=== PATIENT | male | born 1975 | race Caucasian/White ===

== ENCOUNTER 2016-08-12 08:47 | Emergency (ER) | payer OTHER ==
[~2016-08-12] VITALS: Ht 190.5 cm; Wt 95.3 kg
--- NOTE | ~2016-08-12 | EKG ---
[address] [address] [place] [address] ELECTROCARDIOGRAM REPORT Name: JUDY GOODWIN [facility] [id number] Admission: 08/12/16 Attend Phys: Discharge: 08/12/16 Date of : 75 Report #: [id number] THIS REPORT FOR: //name// [facility] ED Test Date: 2016-08-12 Test Time: 09:11:27 Pat Name: JUDY GOODWIN Department: Room: Gender: Airport Electrician: Duane MCMANUS : 1975 Requested By: Jaren Puente Order Number: [id number] MD: Raleigh Sotomayor Measurements Intervals [place] Rate: 89 P: 56 SD: 165 QRS: 59 QRSD: 158 T: 10 QT: 425 QTc: 518 Interpretive Statements Sinus tachycardia Ventricular trigeminy Right bundle branch block Baseline wander in lead(s) V3 No previous ECG available for comparison Electronically Signed On 08-13-2016 15:01:08 CDT by Raleigh Sotomayor [email or web address] <ELECTRONICALLY SIGNED> By: Raleigh Sotomayor MD, [facility] 08/13/16 1501 0 0 Raleigh Sotomayor MD, [facility] /EPI
[2016-08-12 09:14] LABS: HEMATOCRIT 38.3 % (42.0-52.0); HEMOGLOBIN 12.6 gm/dL (14.0-18.0); MCH 24.9 pg (26.0-34.0); MCHC 32.8 g/dL (28.0-37.0); RBC 5.04 mil/uL (4.50-6.00); RDW 17.8 % (10.5-14.5); WBC 5.8 thou/uL (4.0-11.0)
[2016-08-12 09:26] LABS: APTT 25.4 Seconds (24.5-32.8); INR 1.1; PROTIME 11.9 Seconds (9.3-11.4)
[2016-08-12 09:28] LABS: ANION GAP 11 mmol/L (7-16); BUN 18 mg/dL (7-18); CALCIUM 8.8 mg/dL (8.5-10.1); CHLORIDE 106 mmol/L (98-107); CO2 23 mmol/L (21-32); CREATININE 1.3 mg/dL (0.7-1.3); GLUCOSE 123 mg/dL (74-106); POTASSIUM 3.5 mmol/L (3.5-5.1); SODIUM 140 mmol/L (136-145)
[2016-08-12 09:31] LABS: POC CA IONIZED 4.5 mg/dL (4.5-5.3); POC CREATININE 1.1 mg/dL (0.6-1.3); POC HEMOGLOBIN 13.9 g/dL (14.0-18.0); POC POTASSIUM 3.5 mmol/L (3.5-5.1)
[2016-08-12 09:37] LABS: TROPONIN-I < 0.04 ng/mL (<0.04-0.07)
[2016-08-12 10:35] VITALS: BP 141/79
== END 2016-08-12 10:45 | disposition short-term general hospital (02) ==
LOC: ER 08:47
PROVIDERS: Emergency Medicine
DX: I63.412 Cerebral infarction due to embolism of left middle cerebral artery (principal)

== ENCOUNTER 2016-10-02 02:41 | Inpatient (IN) | payer OTHER ==
[~2016-10-02] VITALS: Ht 190.5 cm; Wt 90.7 kg
--- NOTE | ~2016-10-02 | D ---
[facility] [place] [address] DISCHARGE SUMMARY Name: JUDY GOODWIN Room #: 540-P [facility] IN M.R.#: [id number] Admission: 10/02/16 Attend Phys: Rogerio Francis MD Discharge: 10/04/16 Date of : 75 Report #: [id number] THIS REPORT FOR: //name// CC: [facility] physician/PCP Rogerio Francis DATE OF ADMISSION: 10/02/2016 DATE OF DISCHARGE: 10/04/2016 HISTORY OF PRESENT ILLNESS: The patient is a 41-year-old man with history of Crohn's disease, who was admitted to the hospital for abdominal pain. Please refer to admission H and P for details. In brief, CT scan of the abdomen showed markedly distended bowel loops, with mucosal thickening and possible stricture formation. HOSPITALIZATION COURSE: The patient was hospitalized at [facility]. Crohn's disease exacerbation was suspected. The patient was seen by GI specialist. He was treated with IV Solu-Medrol. His symptoms improved overnight, and by next day, he became completely asymptomatic. The patient's white count remained normal. His stool test for C. diff came negative. Currently, the patient is doing well. His p.o. intake is well established, and he has no abdominal symptoms. GI doctor recommended short prednisone taper off course. The patient will continue to follow as an outpatient in GI clinic. Currently, the patient's condition is acceptable as documented in the patient's chart. DISCHARGE DIAGNOSES: 1. Crohn's exacerbation, ____ on steroids. Details as above. 2. Recent stroke, with residual right-sided weakness. 3. Newly diagnosed atrial fibrillation, on Eliquis for anticoagulation. 4. Dyslipidemia. DISPOSITION: The patient is discharged home. FOLLOWUP PLAN: Follow up in GI clinic as advised. DISCHARGE MEDICATIONS: Please refer to the med reconciliation list. <ELECTRONICALLY SIGNED> By: Rogerio Francis MD 10/04/16 1807 1244 1432 Rogerio Francis MD /nt
--- NOTE | ~2016-10-02 | EKG ---
[address] [address] ELECTROCARDIOGRAM REPORT Name: BUDDYJUDYTRINA BYERS Room #: 540-P ADM IN M.R.#: [id number] Admission: 10/02/16 Attend Phys: Wei Kwan MD Discharge: Date of : 75 Report #: [id number] THIS REPORT FOR: //name// [facility] ED Test Date: 2016-10-02 Test Time: 02:45:55 Pat Name: JUDY GOODWIN Department: Room: 540 Gender: M Stereotyper: JULIA : 1975 Requested By: Genevieve Roque Order Number: [id number] MD: Dominic Soni Measurements Intervals [place] Rate: 69 P: 83 [place]: 172 QRS: 76 QRSD: 143 T: 32 QT: 428 QTc: 459 Interpretive Statements Sinus rhythm Right bundle branch block Baseline wander in lead(s) V1,V2 Compared to ECG 08/12/2016 09:11:27 Sinus tachycardia no longer present Ventricular premature complex(es) no longer present Electronically Signed On 10-02-2016 17:56:11 CDT by Dominic Soni [email or web address] <ELECTRONICALLY SIGNED> By: Dominic Soni MD 10/02/16 1756 0245 0245 Dominic Soni MD /EPI
[2016-10-02 02:45] VITALS: BP 126/72
[2016-10-02] MEDS ORDERED: MAVIK2 MG PO (03:09)
[2016-10-02] MEDS ORDERED: ELIQUIS5 MG PO ×2 (03:09→07:42)
[2016-10-02 03:35] LABS: ABSOLUTE NEUTROPHILS 4.3 thou/uL (1.4-8.2); BASOPHILS 0.6 % (0.0-2.0); EOSINOPHILS 1.2 % (0.0-3.0); HEMATOCRIT 42.4 % (42.0-52.0); HEMOGLOBIN 13.7 gm/dL (14.0-18.0); LYMPHOCYTES 35.2 % (24.0-44.0); MCH 25.7 pg (26.0-34.0); MCHC 32.3 g/dL (28.0-37.0); MCV 79.5 fL (80.0-100.0); MONOCYTES 10.3 % (1.0-8.0); PLATELET COUNT 224 thou/uL (150-400); POLYS 52.7 % (36.0-66.0); RBC 5.33 mil/uL (4.50-6.00); RDW 18.3 % (10.5-14.5); WBC 8.2 thou/uL (4.0-11.0)
[2016-10-02 03:36] LABS: MANUAL DIFF NO
[2016-10-02 03:39] LABS: ANION GAP 12 mmol/L (7-16); BUN 14 mg/dL (7-18); CALCIUM 9.4 mg/dL (8.5-10.1); CHLORIDE 105 mmol/L (98-107); CO2 23 mmol/L (21-32); CREATININE 1.3 mg/dL (0.7-1.3); GLUCOSE 131 mg/dL (74-106); POTASSIUM 4.1 mmol/L (3.5-5.1); SODIUM 140 mmol/L (136-145)
[2016-10-02 03:58] LABS: ALBUMIN 3.8 g/dL (3.4-5.0); ALKALINE PHOSPHATASE 91 U/L (46-116); DIRECT BILIRUBIN < 0.1 mg/dL (<0.1-0.3); SGOT 33 U/L (15-37); SGPT 28 U/L (30-65); TOTAL BILIRUBIN 0.4 mg/dL (<0.1-1.0); TOTAL PROTEIN 8.3 g/dL (6.4-8.2); TROPONIN-I < 0.04 ng/mL (<0.04-0.07)
[2016-10-02 07:15] VITALS: BP 126/83
[2016-10-02 07:35] VITALS: BP 107/69
[2016-10-02] MEDS ORDERED: COZAAR 25 MG TA25 M1 PO (07:43)
[2016-10-02] MEDS ORDERED: ATORVASTATIN CA40 MG PO (07:43)
[2016-10-02] MEDS ORDERED: BYSTOLIC 5 MG5 M1 PO (07:44)
[2016-10-02] MEDS ORDERED: ZOLOFT25 MG PO (07:44)
[2016-10-02 15:30] VITALS: BP 119/71
[2016-10-02 20:00] VITALS: BP 133/88
[2016-10-02 23:47] VITALS: BP 117/71
[2016-10-03 03:30] VITALS: BP 118/76
[2016-10-03 07:42] VITALS: BP 120/85
[2016-10-03 15:44] VITALS: BP 125/77
[2016-10-03 19:51] VITALS: BP 124/84
[2016-10-04 04:00] VITALS: BP 124/73
[2016-10-04 05:43] LABS: ABSOLUTE NEUTROPHILS 5.6 thou/uL (1.4-8.2); BASOPHILS 0.1 % (0.0-2.0); MCH 25.4 pg (26.0-34.0); MCHC 32.3 g/dL (28.0-37.0); MCV 78.5 fL (80.0-100.0); MONOCYTES 4.1 % (1.0-8.0); PLATELET COUNT 204 thou/uL (150-400); POLYS 80.8 % (36.0-66.0); RBC 4.46 mil/uL (4.50-6.00); RDW 17.8 % (10.5-14.5)
[2016-10-04 05:52] LABS: HEMOGLOBIN 11.3 gm/dL (14.0-18.0); MANUAL DIFF NO
[2016-10-04 05:58] LABS: CALCIUM 8.8 mg/dL (8.5-10.1); CREATININE 1.1 mg/dL (0.7-1.3); POTASSIUM 3.9 mmol/L (3.5-5.1)
[2016-10-04 07:33] LABS: ANISOCYTOSIS 1+; OVALOCYTES FEW
[2016-10-04 07:34] LABS: LARGE PLATELETS OCCASIONAL
[2016-10-04 08:02] VITALS: BP 129/83
[2016-10-04 11:04] LABS: % SATURATION 9 % (20-39); IRON 29 ug/dL (65-175); TIBC 312 ug/dL (250-450); UIBC 283 ug/dL
[2016-10-04] MEDS ORDERED: PREDNISONE 10 M10 MG PO (12:47)
[2016-10-04 12:56] VITALS: BP 129/83
[2016-10-04 16:24] VITALS: BP 129/83
== END 2016-10-04 16:25 | disposition home or self-care (01) | DRG 386 ==
LOC: ER 02:41 → 5S 06:30 → EROBS 06:30 → 5S 07:22
PROVIDERS: Emergency Medicine; Internal Medicine Endocrinology, Diabetes & Metabolism; Internal Medicine Gastroenterology
DX: K50.90 Crohn's disease, unspecified, without complications (principal); I69.351 Hemiplegia and hemiparesis following cerebral infarction affecting right dominant side; I48.91 Unspecified atrial fibrillation; E78.5 Hyperlipidemia, unspecified; I10 Essential (primary) hypertension; R61 Generalized hyperhidrosis; Z79.899 Other long term (current) drug therapy; Z79.01 Long term (current) use of anticoagulants
CPT/HCPCS: 10086

== ENCOUNTER → 2016-10-31 | Outpatient (CLI) | payer OTHER ==
[~2016-10-31] MED LIST: ATORVASTATIN CA40 MG PO; BYSTOLIC 5 MG5 M1 PO; COZAAR 25 MG TA25 M1 PO; ELIQUIS5 MG PO; MAVIK2 MG PO; PREDNISONE 10 M10 MG PO; ZOLOFT25 MG PO
== END ==
LOC: CAT 07:47
DX: K50.90 Crohn's disease, unspecified, without complications (principal)

== ENCOUNTER 2016-12-20 01:26 | Emergency (ER) | payer BC ==
[2016-12-20] MEDS ORDERED: NORCO 5-325 TA1 EACH PO (03:09)
[2016-12-20] MEDS ORDERED: ZOFRAN ODT4 MG PO (03:09)
[2016-12-20 03:27] LABS: CALCIUM 9.2 mg/dL (8.5-10.1); CREATININE 1.3 mg/dL (0.7-1.3); POTASSIUM 3.8 mmol/L (3.5-5.1)
[2016-12-20 03:28] LABS: ABSOLUTE NEUTROPHILS 3.1 thou/uL (1.4-8.2); BASOPHILS 0.7 % (0.0-2.0); EOSINOPHILS 1.4 % (0.0-3.0); HEMATOCRIT 38.4 % (42.0-52.0); HEMOGLOBIN 12.3 gm/dL (14.0-18.0); LYMPHOCYTES 47.1 % (24.0-44.0); MANUAL DIFF NO; MCHC 32.1 % (28.0-37.0); MCV 81.1 fL (80.0-100.0); MONOCYTES 11.6 % (1.0-8.0); PLATELET COUNT 234 thou/uL (150-400); POLYS 39.2 % (36.0-66.0); RBC 4.74 mil/uL (4.50-6.00); RDW 15.9 % (10.5-14.5)
[2016-12-20 03:47] LABS: URINE BILIRUBIN NEGATIVE (Negative); URINE BLOOD 3+ (Negative); URINE COLOR YELLOW; URINE GLUCOSE-RANDOM* NEGATIVE (Negative); URINE KETONES NEGATIVE (Negative); URINE NITRITE NEGATIVE (Negative); URINE PROTEIN (DIPSTICK) TRACE (Negative); URINE SPECIFIC GRAVITY 1.025 (1.003-1.035); URINE UROBILINOGEN 0.2 E.U./dl (0.2-1.0)
[2016-12-20] MEDS ORDERED: FLOMAX0.4 MG PO (03:54)
[2016-12-20 04:16] LABS: CASTS None Seen /LPF (None Seen); SQUAMOUS None Seen /LPF (0-3)
[2016-12-20 04:17] LABS: BACTERIA 1-9 Few /HPF (None Seen); CRYSTALS None Seen /LPF (None Seen); URINE RBC >20 Many /HPF (0-2); URINE WBC 0-5 Rare /HPF (0-5)
== END 2016-12-20 07:57 | disposition home or self-care (01) ==
LOC: ER 01:26
PROVIDERS: Emergency Medicine
DX: N20.0 Calculus of kidney (principal); I10 Essential (primary) hypertension; E78.00 Pure hypercholesterolemia, unspecified; I48.91 Unspecified atrial fibrillation; Z86.73 Personal history of transient ischemic attack (TIA), and cerebral infarction without residual deficits; K50.90 Crohn's disease, unspecified, without complications

== ENCOUNTER → 2018-04-18 | Outpatient (CLI) | payer BC ==
[~2018-04-18] MED LIST changes: +FLOMAX0.4 MG PO; +NORCO 5-325 TA1 EACH PO; +ZOFRAN ODT4 MG PO
== END ==
LOC: CAT 08:15
DX: K50.019 Crohn's disease of small intestine with unspecified complications (principal); I51.7 Cardiomegaly; N20.0 Calculus of kidney; N28.89 Other specified disorders of kidney and ureter; R19.03 Right lower quadrant abdominal swelling, mass and lump; R59.0 Localized enlarged lymph nodes; M47.817 Spondylosis without myelopathy or radiculopathy, lumbosacral region

== ENCOUNTER 2018-06-10 17:08 | Inpatient (IN) | payer BC ==
[~2018-06-10] VITALS: Ht 193 cm; Wt 96.2 kg
[2018-06-10 17:09] VITALS: BP 91/39
[2018-06-10 17:53] LABS: ABSOLUTE NEUTROPHILS 7.5 thou/uL (1.4-8.2); BASOPHILS 0.7 % (0.0-2.0); EOSINOPHILS 0.5 % (0.0-3.0); HEMATOCRIT 39.9 % (42.0-52.0); HEMOGLOBIN 13.1 gm/dL (14.0-18.0); LYMPHOCYTES 10.3 % (24.0-44.0); MCH 28.8 pg (26.0-34.0); MCHC 32.7 g/dL (28.0-37.0); MONOCYTES 7.9 % (1.0-8.0); PLATELET COUNT 190 thou/uL (150-400); POLYS 80.6 % (36.0-66.0); RBC 4.53 mil/uL (4.50-6.00); RDW 16.6 % (10.5-14.5); WBC 9.3 thou/uL (4.0-11.0)
[2018-06-10 18:00] LABS: ANION GAP 9 mmol/L (7-16); BUN 23 mg/dL (7-18); CALCIUM 8.9 mg/dL (8.5-10.1); CHLORIDE 105 mmol/L (98-107); CO2 29 mmol/L (21-32); CREATININE 1.3 mg/dL (0.7-1.3); GLUCOSE 120 mg/dL (74-106); POTASSIUM 4.2 mmol/L (3.5-5.1); SODIUM 143 mmol/L (136-145)
[2018-06-10 18:09] LABS: TROPONIN-I <0.06 ng/mL (<0.06)
[2018-06-10] MEDS ORDERED: POTASSIUM20 PO (19:14)
[2018-06-10] MEDS ORDERED: FLECAINIDE ACET50 M1 PO (19:14)
[2018-06-10] MEDS ORDERED: CELEXA20 MG PO (19:14)
[2018-06-10] MEDS ORDERED: LIORESAL 10 MG10 MG PO (19:14)
[2018-06-10 19:45] VITALS: BP 113/74
[2018-06-10 20:20] VITALS: BP 117/82
[2018-06-10 20:45] VITALS: BP 134/95
[2018-06-10 23:50] VITALS: BP 119/84
[2018-06-11 03:30] VITALS: BP 133/96
--- NOTE | 2018-06-11 04:51 | NUR ---
received patient from ER via cart. alert, oriented x 4. calm, pleasant. denies pain. history of CVA with right sided weakness. right arm - able to move, grasp but slower, weaker than left. able to ambulate without assist although right leg has a limp. discussed admission orders with patient. mahamed nesbitt CONFERENCE TRANSLATOR aware of admit, saw patient in the ER. BP 134/95, pulse 83. Cardizem drip not started in ER due to conversion of A fib with RVR. Currently sinus rhythm. denies pain.
[2018-06-11 06:18] LABS: CALCIUM 8.4 mg/dL (8.5-10.1); POTASSIUM 3.4 mmol/L (3.5-5.1)
[2018-06-11 08:10] VITALS: BP 121/90
--- NOTE | 2018-06-11 08:25 | NUR ---
PT IS A&0X4, AMB W/SLIGHT LIMP/WEAKNESS YET STEADY. SEE INTERVENTION ASSESSMENT NO C/O PAIN AT THIS TIME, HR REGULAR AUSCULTATING 30 SEC, GOOD APPETITE, SPOKE OF STROKE 2 YRS PRIOR, STATES HIS WEAKNESS AND HIS PERCEIVED INABIITY WITH SPEECH, BARELY DISCERNIBLE. ENCOURAGED PT TO USE CALL LIGHT FOR ANY NEEDS. 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
--- NOTE | 2018-06-11 08:52 | 2DMMODE ---
[facility] [place] [address] 2 D/M-MODE ECHOCARDIOGRAM Name: JUDY GOODWIN Room #: 350-P ADM IN M.R.#: [id number] ������������� Admission: 06/10/18 ������������� Attend Phys: Yvette Pulliam Discharge: ��� ������������� ��� Date of : 75 Date of Service: 06/11/18 0852 �� Report #: [id number] �������� ��������������������������������������������[id number] THIS REPORT FOR: //name// APPROVED REPORT Study performed: 06/11/2018 07:39:43 EXAM: Comprehensive 2D, Doppler, and color-flow Echocardiogram Patient Location: Bedside Room #: 350 Status: routine BSA: 2.27 HR: 95 bpm BP: 133/96 mmHg Rhythm: BBB Other Information Study Quality: Good Indications AFIB with RVR, BBB. Hx: Afib, CVA, HTN, HLP. 2D Dimensions RVDd: 40.53 mm IVSd: 11.03 (7-11mm) LVOT Diam: 29.23 (18-24mm) LVDd: 48.62 mm PWd: 10.59 (7-11mm) Ascending Ao: 34.29 (22-36mm) LVDs: 35.88 (25-40mm) Aortic Root: 42.73 mm Volumes Left Atrial Volume (Systole) Single Plane 4CH: 57.87 mL Single Plane 2CH: 73.80 mL LA ESV Index: 32.00 mL/m2 Aortic Valve AoV Peak Junior.: 0.75 m/s AO Peak Gr.: 2.23 mmHg LVOT Max P.74 mmHg LVOT Max V: 0.66 m/s IBRAHIMA Vmax: 5.93 cm2 Mitral Valve MV Decel. Time: 157.13 ms MV E Max Junior.: 0.62 m/s [facility] [address] [place] [address] 2 D/M-MODE ECHOCARDIOGRAM Name: JUDY GOODWIN Room #: [facility] IN [facility].#: [id number] ������������� Admission: 06/10/18 ������������� Attend Phys: Yvette Pulliam Discharge: ��� ������������� ��� Date of : 75 Date of Service: 06/11/18 0852 �� Report #: [id number] �������� ��������������������������������������������[id number] Pulmonary Valve PV Peak Junior.: 0.65 m/s PV Peak Gr.: 1.67 mmHg Tricuspid Valve TR Peak Junior.: 1.83 m/s RAP Estimate: 5.00 mmHg TR Peak Gr.: 13.34 mmHg PA Pressure: 18.00 mmHg Left Ventricle The left ventricle is normal size. There is normal LV segmental wall motion. There is normal left ventricular wall thickness. Left ventricular systolic function is normal. LVEF is 50-55%. This study is not technically sufficient to allow evaluation of the LV diastolic function. Right Ventricle The right ventricle is normal size. The right ventricular systolic function is normal. Atria Left atrium is at the upper limits of normal. The right atrium size is normal. Aortic Valve The aortic valve is normal in structure. No aortic regurgitation is present. There is no aortic valvular stenosis. Mitral Valve The mitral valve is normal in structure. Mild mitral regurgitation. Tricuspid Valve The tricuspid valve is normal in structure. Trace tricuspid regurgitation. Estimated PAP is 20mmHg. Pulmonic Valve The pulmonary valve is normal in structure. Trace pulmonic regurgitation. Great Vessels Aortic root is dilated is dilated at 4.3cm. The ascending aorta is normal in size. IVC is normal in size and collapses >50% with inspiration. Pericardium There is no pericardial effusion. [facility] [address] [place] [address] 2 D/M-MODE ECHOCARDIOGRAM Name: JUDY GOODWIN Room #: 350-[facility] IN .R.#: [id number] ������������� Admission: 06/10/18 ������������� Attend Phys: Yvette Pulliam Discharge: ��� ������������� ��� Date of : 75 Date of Service: 06/11/1852 �� Report #: [id number] �������� ��������������������������������������������[id number] <Conclusion> Left ventricular systolic function is normal. There is normal LV segmental wall motion. LVEF 50-55%. The aortic valve is normal in structure. No aortic regurgitation or stenosis The mitral valve is normal Mild mitral regurgitation. Trace tricuspid regurgitation. Estimated pulmonary artery pressure of 20mmHg. There is no pericardial effusion. ��������������������������������������������� <ELECTRONICALLY SIGNED> ���������������������������������������� By: Raleigh Sotomayor MD, [facility] ��������������������������������������������� [id number] 1 1 Raleigh Sotomayor MD, [facility] /INF
--- NOTE | 2018-06-11 09:01 | EKG ---
[address] [place] [employer] [address] ELECTROCARDIOGRAM REPORT Name: JUDY GOODWIN Room #: 350-P ADM IN M.R.#: [id number] ������������������ Admission: 06/10/18 ������������������ Attend Phys: Yvette Casas Discharge: ������������������ Date of : 75 Report #: [id number] ����������������������������������������������������������������� [id number] THIS REPORT FOR: //name// [facility] ED Test Date: 2018-06-10 Test Time: 17:26:22 Pat Name: JUDY GOODWIN Department: Room: 350 Gender: M Cable Wirer: SONIA : 1975 Requested By: Jaren Puente Order Number: [id number] MD: Raleigh Sotomayor Measurements Intervals [place] Rate: 156 P: 166 VT: 115 QRS: 78 QRSD: 153 T: 2 QT: 336 QTc: 542 Interpretive Statements Supraventricular tachycardia Right bundle branch block Compared to ECG 10/02/2016 02:45:55 Sinus rhythm no longer present Electronically Signed On 06-11-2018 9:01:33 COOK HELPER PRESERVES by Raleigh Sotomayor [email or web address] ��������������������������������������������� <ELECTRONICALLY SIGNED> ���������������������������������������� By: Raleigh Sotomayor MD, [facility] ��������������������������������������������� 06/11/18900 25 25 Raleigh Sotomayor MD, [facility] /EPI
--- NOTE | 2018-06-11 09:06 | EKG ---
[address] [place] [address] ELECTROCARDIOGRAM REPORT Name: JUDY GOODWIN Room #: 350-P ADM IN M.R.#: [id number] ������������������ Admission: 06/10/18 ������������������ Attend Phys: Yvette Casas Discharge: ������������������ Date of : 75 Report #: [id number] ����������������������������������������������������������������� [id number] THIS REPORT FOR: //name// [facility] ED Test Date: 2018-06-10 Test Time: 18:09:59 Pat Name: JUDY GOODWIN Department: Room: 350 Gender: M Tile Mechanic Helper: SONIA : 1975 Requested By: Jaren Puente Order Number: [id number] MD: Raleigh Sotomayor Measurements Intervals [place] Rate: 81 P: 210 IN: 479 QRS: 57 QRSD: 143 T: 22 QT: 400 QTc: 465 Interpretive Statements Atypical atrial flutter versus atrial tachycardia Right bundle branch block Compared to ECG 10/02/2016 02:45:55 Heart rate has slowed Electronically Signed On 06-11-2018 9:05:56 FAMILY LITERACY COORDINATOR by Raleigh Sotomayor [email or web address] ��������������������������������������������� <ELECTRONICALLY SIGNED> ���������������������������������������� By: Raleigh Sotomayor MD, [facility] ��������������������������������������������� 06/11/18904 08 08 Raleigh Sotomayor MD, [facility] /EPI
[2018-06-11] MEDS ORDERED: CARDIZEM CD 18180 M3 PO (09:15)
--- NOTE | 2018-06-11 09:20 | EKG ---
[address] [place] [address] ELECTROCARDIOGRAM REPORT Name: JUDY GOODWIN Room #: 350-P ADM IN M.R.#: [id number] ������������������ Admission: 06/10/18 ������������������ Attend Phys: Yvette Casas Discharge: ������������������ Date of : 75 Report #: [id number] ����������������������������������������������������������������� [id number] THIS REPORT FOR: //name// [facility] Test Date: 2018-06-11 Test Time: 07:40:52 Pat Name: JUDY GOODWIN Department: Room: 350 P Gender: M Automobile Lights Assembler: Clarissa BUSCH : 1975 Requested By: Raleigh Sotomayor Order Number: [id number] MD: Raleigh Sotomayor Measurements Intervals [place] Rate: 65 P: 229 [place]: 73 QRS: 71 QRSD: 148 T: 28 QT: 426 QTc: 443 Interpretive Statements Atypical atrial flutter with variable AV conduction Right bundle branch block Compared to ECG 10/02/2016 02:45:55 No significant change was found Electronically Signed On 06-11-2018 9:19:48 COUNTER WAITRESS/WAITER by Raleigh Sotomayor [email or web address] ��������������������������������������������� <ELECTRONICALLY SIGNED> ���������������������������������������� By: Raleigh Sotomayor MD, [facility] ��������������������������������������������� 06/11/18918 9 9 Raleigh Sotomayor MD, [facility] /EPI
[2018-06-11 10:44] VITALS: BP 121/90
--- NOTE | 2018-06-11 11:16 | NUR ---
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 PT HUNGRY, LEFT WITH SNACKS TO TIDE HIM OVER TILL HE GETS TO PHARMACY AND HOME. D/C TELE STRIP ADDED IN TO CHART
--- NOTE | 2018-06-11 16:37 | HC ---
[facility] [place] [address] CONSULTATION Name: JUDY GOODWIN Room #: 350-[facility] IN M.R.#: [id number] Admission: 06/10/18 ������������������ Attend Phys: Yvette Casas Discharge: 06/11/18 ������������������ Date of : 75 Report #: [id number] THIS REPORT FOR: //name// CC: [facility] physician/PCP Yvette Piper MD REASON FOR CONSULTATION: Atrial flutter. HISTORY OF PRESENT ILLNESS: The patient is a 43-year-old gentleman with paroxysmal atrial dysrhythmias, hypertension, dyslipidemia and stroke with associated right hemiparesis and mild expressive aphasia. It was around the time of his stroke that his atrial fibrillation was identified. He was originally placed on low-dose flecainide. An implantable loop recorder was placed, which continued to demonstrate paroxysms of atrial fibrillation. He thinks that the paroxysms occur about one time every 2-3 months and last for anywhere from 10-20 minutes. About 3 weeks ago due to more frequent paroxysms of atrial fibrillation, his flecainide dose was increased to 100 mg twice daily. Now, he presents to the Emergency Department with palpitations and what appears to be atypical atrial flutter with a rapid ventricular response. He has slowed down and has become asymptomatic with intravenous Cardizem. There were no bleeding problems with apixaban. He denies near syncope or syncope. MEDICATIONS: Include apixaban 5 mg twice daily, atorvastatin 40 mg daily, Bystolic 10 mg daily, losartan, flecainide 100 mg twice daily, Celexa 20 mg daily, and baclofen. PAST MEDICAL HISTORY: His past history and medical records have been reviewed and include a history of hypertension, paroxysmal atrial fibrillation, dyslipidemia, implantable loop recorder. SOCIAL HISTORY: He is nonsmoker, nondrinker. . He is disabled. He had worked in [employer]. FAMILY HISTORY: Unremarkable for premature coronary disease or atrial dysrhythmias. REVIEW OF SYSTEMS: All systems negative except as that noted above. PHYSICAL EXAMINATION: GENERAL: This is a pleasant gentleman who is alert and in no distress. VITAL SIGNS: Blood pressure is 133/90, heart rate of 83 and irregular. He is afebrile, 6 feet 4 inches tall, 212 pounds. HEENT: There are neither xanthelasma, subcutaneous xanthomata, oral mucosa or digital cyanosis or kyphoscoliosis present. CHEST: Clear to auscultation and percussion. CARDIAC: Regular rate and rhythm with normal S1, S2. No murmurs or rubs. [facility] [address] [place] [address] CONSULTATION Name: JUDY GOODWIN Room #: [facility] IN M.R.#: [id number] Admission: 06/10/18 ������������������ Attend Phys: Yvette Casas Discharge: 06/11/18 ������������������ Date of : 75 Report #: [id number] ABDOMEN: Soft and nontender. EXTREMITIES: Without cyanosis, clubbing or edema. Radial pulses are 2+. NEUROLOGIC: He has mild expressive aphasia and right hemiparesis. LABORATORY DATA: Sodium 142, potassium 3.4, creatinine 1.1. ProBNP of 1718. Troponin 0. White count 9.3, hemoglobin 13, hematocrit 39, and platelet count 190. Chest x-ray: Mild cardiomegaly. EKG: Atrial flutter versus atrial tachycardia with 2:1 AV conduction, right bundle-branch block. IMPRESSION: 1. Paroxysmal atrial fibrillation and atrial flutter. 2. Hypertension. 3. Prior cardioembolic stroke. RECOMMENDATIONS: 1. Change Bystolic to Cardizem for added rate control. 2. Continued, lifelong anticoagulant therapy. 3. Consider alternative antiarrhythmic therapy versus ablation. The patient wishes to discuss this with his wiping rag washer, Dr. Hasmukh Piper. 4. Assuming continued rate control and with this asymptomatic atrial dysrhythmia, outpatient management is appropriate. Thank you for asking me to participate in his care. ��������������������������������������������� <ELECTRONICALLY SIGNED> ���������������������������������������� By: Raleigh Sotomayor MD, [facility] ��������������������������������������������� 06/11/18 1637 0740 0826 Raleigh Sotomayor MD, FAC /nt
== END 2018-06-11 10:57 | disposition home or self-care (01) | DRG 309 ==
LOC: ER 17:08 → 3W 19:30 → EROBS 19:30 → 4W 20:08 → 3W 20:33 → ENTRNSPT 06-11 10:49 → 3W 06-11 10:57 → EDTRNSPTSTS 06-11 10:59
PROVIDERS: Emergency Medicine; Nurse Practitioner Family; ADMIT Hospitalist
DX: I48.0 Paroxysmal atrial fibrillation (principal); I69.351 Hemiplegia and hemiparesis following cerebral infarction affecting right dominant side; K50.90 Crohn's disease, unspecified, without complications; D68.59 Other primary thrombophilia; E87.6 Hypokalemia; I10 Essential (primary) hypertension; I48.92 Unspecified atrial flutter; E78.5 Hyperlipidemia, unspecified; I69.320 Aphasia following cerebral infarction; Z79.01 Long term (current) use of anticoagulants; Z79.899 Other long term (current) drug therapy
CPT/HCPCS: 10879

== ENCOUNTER → 2018-08-05 | Outpatient (CLI) | payer BC ==
[~2018-08-05] MED LIST changes: +CARDIZEM CD 18180 M3 PO; +CELEXA20 MG PO; +FLECAINIDE ACET50 M1 PO; +LIORESAL 10 MG10 MG PO; +POTASSIUM20 PO
== END ==
LOC: CAT 07:40
DX: K50.019 Crohn's disease of small intestine with unspecified complications (principal); R10.84 Generalized abdominal pain; N20.0 Calculus of kidney

== ENCOUNTER 2020-10-25 10:17 | Emergency (ER) | payer BC ==
[~2020-10-25] VITALS: Ht 193 cm; Wt 90.7 kg
[2020-10-25] MEDS ORDERED: COZAAR 25 MG TA25 M1 PO (11:04)
[2020-10-25] MEDS ORDERED: BYSTOLIC10 MG PO (11:04)
[2020-10-25] MEDS ORDERED: STELARA90 MG/1 ML SUBQ (11:05)
[2020-10-25] MEDS ORDERED: DOFETILIDE500 MCG PO (11:06)
[2020-10-25 11:07] LABS: ABSOLUTE NEUTROPHILS 1.8 thou/uL (1.4-8.2); BASOPHILS 1.3 % (0.0-2.0); EOSINOPHILS 2.6 % (0.0-3.0); HEMATOCRIT 40.4 % (42.0-52.0); HEMOGLOBIN 13.3 gm/dL (14.0-18.0); MCH 29.1 pg (26.0-34.0); MCHC 32.8 g/dL (28.0-37.0); MCV 88.8 fL (80.0-100.0); MONOCYTES 11.8 % (1.0-8.0); PLATELET COUNT 140 thou/uL (150-400); POLYS 50.3 % (36.0-66.0); RBC 4.55 mil/uL (4.50-6.00); RDW 13.9 % (10.5-14.5); WBC 3.6 thou/uL (4.0-11.0)
[2020-10-25 11:15] LABS: CALCIUM 8.6 mg/dL (8.5-10.1); CREATININE 1.2 mg/dL (0.7-1.3); POTASSIUM 3.9 mmol/L (3.5-5.1)
[2020-10-25] MEDS ORDERED: FLOMAX0.4 MG PO (14:01)
[2020-10-25] MEDS ORDERED: ZOFRAN ODT4 MG PO (14:01)
[2020-10-25] MEDS ORDERED: NORCO 10-325 T1 EACH PO (14:01)
[2020-10-25 14:29] LABS: URINE BILIRUBIN NEGATIVE (Negative); URINE BLOOD 3+ (Negative); URINE CLARITY CLEAR; URINE COLOR YELLOW; URINE GLUCOSE-RANDOM* NEGATIVE (Negative); URINE KETONES NEGATIVE (Negative); URINE LEUKOCYTES-REFLEX NEGATIVE (Negative); URINE NITRITE-REFLEX NEGATIVE (Negative); URINE PROTEIN (DIPSTICK) 1+ (Negative); URINE SPECIFIC GRAVITY 1.015 (1.005-1.035); URINE UROBILINOGEN 0.2 E.U./dl (0.2-1.0)
[2020-10-25 14:46] LABS: SQUAMOUS 0-3 Few /LPF (0-3); URINE RBC >20 Many /HPF (NONE SEEN); URINE WBC-REFLEX 0-5 Rare /HPF (0-5)
[2020-10-25 14:48] LABS: CRYSTALS None Seen /LPF (None Seen)
[2020-10-25 14:52] LABS: BACTERIA-REFLEX None Seen /HPF (None Seen)
[2020-10-25 15:15] VITALS: BP 122/86
== END 2020-10-25 15:15 | disposition home or self-care (01) ==
LOC: ER 10:17
PROVIDERS: Emergency Medicine
DX: N20.1 Calculus of ureter (principal); I10 Essential (primary) hypertension; E78.5 Hyperlipidemia, unspecified; I48.91 Unspecified atrial fibrillation; Z86.73 Personal history of transient ischemic attack (TIA), and cerebral infarction without residual deficits; Z87.442 Personal history of urinary calculi; Z79.899 Other long term (current) drug therapy

== ENCOUNTER 2021-01-27 13:20 | Emergency (ER) | payer BC ==
[~2021-01-27] VITALS: Ht 190.5 cm; Wt 88.5 kg
[~2021-01-27 13:20] MED LIST changes: +BYSTOLIC10 MG PO; +DOFETILIDE500 MCG PO; +NORCO 10-325 T1 EACH PO; +STELARA90 MG/1 ML SUBQ
[2021-01-27 14:46] LABS: HEMATOCRIT 39.2 % (42.0-52.0); HEMOGLOBIN 12.7 gm/dL (14.0-18.0); MCH 29.1 pg (26.0-34.0); MCHC 32.4 g/dL (28.0-37.0); MCV 89.7 fL (80.0-100.0); PLATELET COUNT 154 thou/uL (150-400); RBC 4.37 mil/uL (4.50-6.00); RDW 14.1 % (10.5-14.5); WBC 6.6 thou/uL (4.0-11.0)
[2021-01-27 14:53] LABS: CALCIUM 8.3 mg/dL (8.5-10.1); CREATININE 1.2 mg/dL (0.7-1.3); POTASSIUM 3.7 mmol/L (3.5-5.1)
[2021-01-27 15:03] LABS: ALBUMIN 3.5 g/dL (3.4-5.0); DIRECT BILIRUBIN 0.2 mg/dL (<0.1-0.2); TOTAL BILIRUBIN 0.7 mg/dL (0.2-1.0); TOTAL PROTEIN 7.1 g/dL (6.4-8.2)
--- NOTE | 2021-01-27 15:37 | EKG ---
[address] [address] [facility] [address] [place] [address] ELECTROCARDIOGRAM REPORT Name: JUDY GOODWIN Room #: [facility]#: [id number] Admission: 01/27/21 Attend Phys: Discharge: Date of : 75 Report #: [id number] [facility] ED Test Date: 2021-01-27 Test Time: 13:47:27 Pat Name: JUDY GOODWIN Department: Room: Gender: M Records Management Associate: KITTY : 1975 Requested By: Eloy Reardon Order Number: [id number] MD: Federico Varghese Measurements Intervals [place] Rate: 74 P: NM: QRS: 72 QRSD: 142 T: 16 QT: 432 QTc: 480 Interpretive Statements Suspect Accelerated junctional rhythm Right bundle branch block Baseline wander in lead(s) V2 Compared to ECG 06/11/2018 07:40:52 Accelerated junctional rhythm now present Atrial flutter no longer present Electronically Signed On 01-27-2021 15:37:16 CDT by Federico Varghese [email or web address] <ELECTRONICALLY SIGNED> By: Federico Varghese MD, [facility] 01/27/21 1537 1346 46 Federico Varghese MD, [facility] /EPI
[2021-01-27 15:51] LABS: ABSOLUTE NEUTROPHILS 4.8 thou/uL (1.4-8.2); ATYPICAL LYMPHS 3 %
[2021-01-27 17:07] VITALS: BP 127/83
--- NOTE | 2021-01-28 07:09 | EKG ---
[address] [address] [place] [address] ELECTROCARDIOGRAM REPORT Name: JUDY GOODWIN Room #: [facility]#: [id number] Admission: 01/27/21 Attend Phys: Discharge: 01/27/21 Date of : 75 Report #: [id number] [facility] ED Test Date: 2021-01-27 Test Time: 14:15:12 Pat Name: JUDY GOODWIN Department: Room: Gender: Division Chief: rosanna : 1975 Requested By: Eloy Reardon Order Number: [id number] MD: Federico Varghese Measurements Intervals [place] Rate: 77 P: 0 NH: 53 QRS: 62 QRSD: 147 T: 12 QT: 438 QTc: 496 Interpretive Statements Sinus rhythm Short NH interval Right bundle branch block Compared to ECG 01/27/2021 13:47:27 Short NH interval now present Accelerated junctional rhythm no longer present Electronically Signed On 01-28-2021 7:09:05 CDT by Federico Varghese [email or web address] <ELECTRONICALLY SIGNED> By: Federico Varghese MD, [facility] 01/28/21 0709 1415 1415 Federico Varghese MD, [facility] /EPI
== END 2021-01-27 17:08 | disposition home or self-care (01) ==
LOC: ER 13:20
PROVIDERS: Student in an Organized Health Care Education/Training Program
DX: F41.9 Anxiety disorder, unspecified (principal); E78.5 Hyperlipidemia, unspecified; I10 Essential (primary) hypertension; I48.91 Unspecified atrial fibrillation; Z79.891 Long term (current) use of opiate analgesic; Z79.1 Long term (current) use of non-steroidal anti-inflammatories (NSAID); Z79.899 Other long term (current) drug therapy

== ENCOUNTER 2021-05-28 11:42 | Emergency (ER) | payer BC ==
[~2021-05-28] VITALS: Ht 190.5 cm; Wt 90.7 kg
[2021-05-28 12:22] LABS: CALCIUM 9.1 mg/dL (8.5-10.1); CREATININE 1.1 mg/dL (0.7-1.3); POTASSIUM 3.9 mmol/L (3.5-5.1)
[2021-05-28 12:25] LABS: ABSOLUTE NEUTROPHILS 2.6 thou/uL (1.4-8.2); BASOPHILS 0.5 % (0.0-2.0); HEMATOCRIT 48.2 % (42.0-52.0); HEMOGLOBIN 16.1 gm/dL (14.0-18.0); LYMPHOCYTES 21.1 % (24.0-44.0); MCH 29.9 pg (26.0-34.0); MCHC 33.4 g/dL (28.0-37.0); MCV 89.3 fL (80.0-100.0); MONOCYTES 11.5 % (1.0-8.0); PLATELET COUNT 198 thou/uL (150-400); POLYS 64.9 % (36.0-66.0); RDW 13.8 % (10.5-14.5)
[2021-05-28 12:32] LABS: ALBUMIN 4.1 g/dL (3.4-5.0); MAGNESIUM 2.1 mg/dL (1.8-2.4); TOTAL BILIRUBIN 0.8 mg/dL (0.2-1.0); TOTAL PROTEIN 8.7 g/dL (6.4-8.2)
[2021-05-28 13:41] VITALS: BP 112/74
--- NOTE | 2021-05-30 08:06 | EKG ---
[facility] [place] [address] ELECTROCARDIOGRAM REPORT Name: JUDY GOODWIN [facility] [id number] Admission: 05/28/21 Attend Phys: Discharge: 05/28/21 Date of : 75 Report #: [id number] [facility] ED Test Date: 2021-05-28 Test Time: 12:03:05 Pat Name: JUDY GOODWIN Department: Room: Gender: Traveling Nurse: KELLEY : 1975 Requested By: Sukhdev Gaines Order Number: [id number] MD: Raleigh Sotomayor Measurements Intervals [place] Rate: 133 P: 0 NM: 96 QRS: 132 QRSD: 151 T: -2 QT: 375 QTc: 558 Interpretive Statements Supraventricular tachycardia, possibly atrial flutter Rightward axis Right bundle branch block Compared to ECG 01/27/2021 14:15:12 Supraventricular tachycardia has replaced sinus rhythm Electronically Signed On 05-30-2021 8:06:30 VALVE INSPECTOR by Raleigh Sotomayor [email or web address] <ELECTRONICALLY SIGNED> By: Raleigh Sotomayor MD, [facility] 05/30/21 0806 D: [id number] 120 Raleigh Sotomayor MD, [facility] /EPI
--- NOTE | 2021-05-30 08:08 | EKG ---
[address] [address] [facility] [address] [place] [address] ELECTROCARDIOGRAM REPORT Name: JUDY GOODWIN Room #: [facility] [place]#: [id number] Admission: 05/28/21 Attend Phys: Discharge: 05/28/21 Date of : 75 Report #: [id number] [facility] ED Test Date: 2021-05-28 Test Time: 12:51:27 Pat Name: JUDY GOODWIN Department: Room: Gender: Grip: [facility] : 1975 Requested By: Rajeev Gaines Order Number: [id number] MD: Raleigh Sotomayor Measurements Intervals [place] Rate: 43 P: DC: QRS: 82 QRSD: 146 T: 44 QT: 512 QTc: 433 Interpretive Statements Junctional bradycardia Right bundle branch block Compared to ECG 05/28/2021 12:03:05 SVT is no longer present Electronically Signed On 05-30-2021 8:08:25 GRAPHIC PRE PRESS TRADES WORKER by Raleigh Sotomayor [email or web address] <ELECTRONICALLY SIGNED> By: Raleigh Sotomayor MD, [facility] 05/30/21 0808 1251 1251 Raleigh Sotomayor MD, [facility] /EPI
== END 2021-05-28 13:42 | disposition home or self-care (01) ==
LOC: ER 11:42
PROVIDERS: Emergency Medicine
DX: R00.0 Tachycardia, unspecified (principal); I48.91 Unspecified atrial fibrillation; I10 Essential (primary) hypertension; E78.5 Hyperlipidemia, unspecified; Z86.73 Personal history of transient ischemic attack (TIA), and cerebral infarction without residual deficits; Z79.899 Other long term (current) drug therapy; Z79.891 Long term (current) use of opiate analgesic